=== PATIENT | male | born 2005 | race Caucasian/White ===

== ENCOUNTER 2025-07-20 21:24 | Emergency (ER) | payer SELFPAY ==
[2025-07-20] MEDS ORDERED: Ketorolac Tromethamine 30 MG (1 mL) VIAL ONE (21:43)
[2025-07-20] MEDS ORDERED: Boostrix 0.5 ML (Tdap) VIAL (>/=7 yrs of age) ONE (21:44)
[2025-07-20] MEDS ORDERED: CEFAZOLIN 1 GM VIAL ONE ×2 (21:44→21:52)
[2025-07-20 22:13] LABS: #Basophils Less than 0.03 10x3/uL (0.0-0.2); #Eosinophils Less than 0.03 10x3/uL (0.0-0.5); #Monocytes 0.55 10x3/uL (0.0-1.1); #Neutrophils 8.36 10x3/uL (1.5-8.4); %Basophils 0.2 % (0.0-2.0); %Eosinophils 0.2 % (0.0-6.0); %Lymphocytes 15.4 % (18.0-47.0); %Monocytes 5.2 % (0.0-10.0); %Neutrophils 78.7 % (40.0-75.0); Hematocrit 43.4 % (38.8-50.0); Hemoglobin 15.0 g/dL (13.5-17.5); Mean Corpuscular Hemoglobin 30.7 pg (27.0-33.0); Mean Corpuscular Volume 88.8 fL (81.2-95.1); Platelet Count 306 10x3/uL (150-450); Red Blood Cell (RBC) Count 4.89 10x6/uL (4.32-5.72); White Blood Cell (WBC) Count 10.61 10x3/uL (3.5-10.5)
[2025-07-20 22:23] LABS: ALT (SGPT) 17 U/L (Less than 45); AST (SGOT) 28 U/L (11-34); Albumin 4.6 g/dL (3.1-4.5); Alkaline Phosphatase 48 U/L (50-130); Anion Gap 13 mmol/L (10-20); BUN (Urea Nitrogen) 15 mg/dL (8.9-20.6); Bilirubin, Total 1.1 mg/dL (0.3-1.2); Calc. Creatinine Clearance 0 mL/min (70-130); Calcium 9.2 mg/dL (7.8-10.44); Carbon Dioxide 22 mmol/L (22-29); Chloride 107 mmol/L (98-107); Globulin 2.7 g/dL (2.4-3.5); Glucose 161 mg/dL (70-105); Potassium 3.5 mmol/L (3.5-5.1); Sodium 138 mmol/L (136-145)
[2025-07-20] MEDS ORDERED: Gentamicin Sulfate 80 MG in Premix 1 BAG IVPB SCH (22:45)
== END 2025-07-20 23:19 | disposition short-term general hospital (02) ==
LOC: CSHERS 21:24
DX: S61.432A Puncture wound without foreign body of left hand, initial encounter (principal); W32.0XXA Accidental handgun discharge, initial encounter
CPT/HCPCS: 80053; 85025; 90471; 90715; 96365; 96375; J0690; J1580; J1885